=== PATIENT | female | born 1960 | race Caucasian/White ===

== ENCOUNTER 2016-06-10 10:49 | Emergency (ER) | payer OTHER ==
[~2016-06-10] VITALS: Ht 162.6 cm; Wt 79.1 kg
[~2016-06-10 10:49] MED LIST: DULO20 PO; DULO30 PO; GABA800T PO; LURA40 PO; PANT20 PO; PRAZ2 PO; QUET25 PO; Z.0.WALKERFRONT
[2016-06-10 10:55] VITALS: BP 166/109; PULSE 98; RESP 16; TEMP 97.7; O2SAT 96
--- NOTE | 2016-06-10 12:08 | PD ---
HPI Chief Complaint: Musculoskeletal Complaint Time Seen by Provider: 12:08 Travel History International Travel<30 days: No Contact w/Intl Traveler<30days: No Traveled to known affect area: No History of Present Illness HPI 55-year-old female with PMH of fibromyalgia, hypertension presents to the ED for evaluation a 6 day history of left sided mid/ upper back pain which radiates to the shoulders. Patient can identify no acute trauma. She denies previous injury. She describes the pain as a spasm, worsened by certain motions. She denies neck pain, numbness, tingling, weakness, limitations to range of motion or loss of strength of the upper extremities. She's been treating by staying in bed. She states that she recently relocated from [place] and is in the process of seeing a new primary care. She had an appointment scheduled for tomorrow that was declined due to insurance difficulties. She has follow-up in 11 days. 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) Tobacco Use: No Substance Use: No Allergies-Medications (Allergen,Severity, Reaction): Uncoded Allergies: fish (Allergy, Severe, Anaphylaxis, 11/22/15) Patient states she has anaphylaxis reaction raw onion (Allergy, Intermediate, Hives, 11/22/15) swelling in mouth and throat and hives raw onions (Allergy, Intermediate, Swelling, 11/22/15) swelling in mouth and throat and hives Reported Meds & Prescriptions Reported Meds & Active Scripts Active Flexeril (Cyclobenzaprine HCl) 10 Mg Tab 10 Mg PO TID Diclofenac Sodium DR (Diclofenac Sodium) 50 Mg Tabdr 50 Mg PO TID Review of Systems Except as stated in HPI: all other systems reviewed are Neg Physical Exam Narrative GENERAL: Well-nourished, well-developed white female in no acute distress. SKIN: Focused skin assessment warm/dry. HEAD: Normocephalic. EYES: No scleral icterus. No injection or drainage. NECK: Supple, trachea midline. No JVD or lymphadenopathy. No midline tenderness to palpation. No tenderness to palpation of the paraspinal musculature. CARDIOVASCULAR: Regular rate and rhythm without murmurs, gallops, or rubs. RESPIRATORY: Breath sounds equal bilaterally. No accessory muscle use. GASTROINTESTINAL: Abdomen soft, non-tender, nondistended. MUSCULOSKELETAL: No cyanosis, or edema. 5/5 strength in bilateral upper extremities. Resisted extension elicits pain in the back. BACK: No obvious deformity. No CVA tenderness. TTP of the mid trapezius and infraspinatus bilaterally. Data Data Last Documented VS Vital Signs Date Time Temp Pulse Resp B/P Pulse Ox O2 Delivery O2 Flow Rate FiO2 06/10/16 10:55 97.7 98 16 166/109 96 Orders Ketorolac Inj (Toradol Inj) (06/10/16 12:30) Orphenadrine Inj (Norflex Inj) (06/10/16 12:30) [facility] Medical Decision Making Medical Screen Exam Complete: Yes Emergency Medical Condition: Yes Differential Diagnosis Muscle spasm versus fibromyalgia versus musculoskeletal pain versus other Narrative Course 55-year-old female with PMH of fibromyalgia, hypertension presents to the ED for evaluation a 6 day history of left sided mid/ upper back pain which radiates to the shoulders. Patient can identify no acute trauma. She denies previous injury. She describes the pain as a spasm, worsened by certain motions. She denies neck pain, numbness, tingling, weakness, limitations to range of motion or loss of strength of the upper extremities. She's been treating by staying in bed. Vitals reviewed. Patient is hypertensive on presentation, states that she has not taken her daily medication. Physical exam reveals a well-appearing white female in no acute distress. Resisted extension of the arms elicits pain in the back. There is tenderness to palpation in the mid trapezius and infraspinatus bilaterally. No midline tenderness palpation of the back or neck. No tenderness to outpatient of the paraspinal musculature in the cervical area. This is muscle spasm. Patient was blistered IM Toradol and Norflex. She was prescribed a short course of anti -inflammatories and muscle relaxants. She is instructed to return to normal, gentle activity as tolerated, take medication as prescribed, follow up with the primary care provider. She indicated understanding of instructions and is agreeable to the care plan. She is stable and discharged home. Diagnosis Primary Impression: Spasm of thoracic back muscle Referrals: Primary Care Physician Patient Instructions: General Instructions, Muscle Spasm (ED) Additional Instructions: Rest, hydrate. A mixture of rest and normal, gentle activity as best for back pain. No strenuous physical activities for the next few days Diclofenac 3 times a day 5 days as prescribed. Flexeril up to 3 times a day as needed for muscle spasms. Do not drive with taking Flexeril. Applying ice or heat to areas with sore muscles may help to improve your patient. Do not apply ice/ heat for longer than 20 m/h. Follow-up with your primary care provider as planned.. Return to the ED for any urgent or emergent medical condition. Scripts Cyclobenzaprine (Flexeril)10 Mg Tab10 Mg PO TID #12 TAB Ref 0 Prov:Aguilar Lombardi MD 06/10/[address] 50 Mg Tabdr50 Mg PO TID #15 TAB Ref 0 Prov:Aguilar Lombardi MD 06/10/16 Disposition: 01 DISCHARGE HOME Condition: Stable Shanda Carrero Jun 10, 2016 12:08
[2016-06-10] MEDS ORDERED: DICL50TA3 PO (12:28)
[2016-06-10] MEDS ORDERED: CYCL1TAB29 PO (12:28)
[2016-06-10] MEDS ORDERED: ORPHENADRINE INJ 60 MG/2 ML AMP IM ONE (12:30)
[2016-06-10] MEDS ORDERED: KETOROLAC TROMETHAMINE 60 MG/2 ML (IM) VIAL IM ONE (12:30)
== END 2016-06-10 12:51 | disposition home or self-care (01) ==
LOC: PHEFT 10:49
DX: M62.830 Muscle spasm of back (principal); I10 Essential (primary) hypertension; M06.9 Rheumatoid arthritis, unspecified; F31.9 Bipolar disorder, unspecified
CPT/HCPCS: 96372; 99283; J1885; J2360